=== PATIENT | female | born 2000 ===

== ENCOUNTER 2019-04-12 12:02 | Emergency (ER) | payer OTHER ==
--- NOTE | 2019-04-12 12:30 | UC ---
FLU HPI - HPI Summary HPI Summary: 18 yo female presents with flu-like symptoms. She tells me that for the past week she has had sinus pain/pressure/congestion, sore throat, and dry cough. Last night developed subjective fever and body aches. She has not been taking anything OTC for her symptoms. She does not smoke. Denies rash, SOB, chest pain , abdominal pain, n/v/d, dysuria. - History of Current Complaint Chief Complaint: UCGeneralIllness Stated Complaint: FEVER Time Seen by Provider: 04/12/19 12:30 Hx Obtained From: Patient Hx Last Menstrual Period: 04/12/19 Severity Currently: Mild Severity Initially: Mild Pain Intensity: 1 Pain Scale Used: 0-10 Numeric - Allergy/Home Medications Allergies/Adverse Reactions: Allergies Allergy/AdvReac Type Severity Reaction Status Date / Time No Known Allergies Allergy Verified 04/12/19 12:13 Home Medications: Home Medications Ibuprofen TAB* [Motrin TAB* 600 MG] 600 mg PO Q6H PRN 04/12/19 [History Confirmed 04/12/19] Norethindrone-E.estradiol-Iron [Junel Fe 04/07 1-20 mg-Mcg] 1 tab PO DAILY [History Confirmed 04/12/19] PMH/Surg Hx/FS Hx/Imm Hx - Additional Past Medical History Additional PMH: None - Surgical History Surgical History: Yes Surgery Procedure, Year, and Place: tear duct surgery as a baby - Family History Known Family History: Positive: None - Social History Occupation: Student Lives: Dormitory/Roommates Alcohol Use: Occasionally Substance Use Type: None Smoking Status (MU): Never Smoked Tobacco Review of Systems All Other Systems Reviewed And Are Negative: No Constitutional: Positive: Fever, Other - Body aches Skin: Positive: Negative Eyes: Positive: Negative ENT: Positive: Sore Throat, Nasal Discharge, Sinus Congestion, Sinus Pain/ Tenderness Respiratory: Positive: Cough Cardiovascular: Positive: Negative Gastrointestinal: Positive: Negative Neurovascular: Positive: Negative Neurological: Positive: Negative Psychological: Positive: Negative Physical Exam - Summary Physical Exam Summary: GENERAL: NAD. WDWN. No pain distress. SKIN: No rashes, sores, lesions, or open wounds. HEENT: Head: AT/NC Eyes: EOM intact. Conjunctiva clear without inflammation or discharge. Ears: Hearing grossly normal. TMs intact, no bulging, erythema, or edema. Nose: Nasal mucosa mildly swollen and erythematous without discharge. TTP maxillary and frontal sinus. Positive post nasal drip Throat: Posterior oropharynx without exudates, erythema, or tonsillar enlargement. Uvula midline. NECK: Supple. Nontender. No lymphadenopathy. CHEST: CTAB. No r/r/w. No accessory muscle use. Breathing comfortably and in no distress. CV: RRR. Pulses intact. Cap refill <2seconds NEURO: Alert. PSYCH: Age appropriate behavior. Triage Information Reviewed: Yes Vital Signs: Initial Vital Signs Temp 99.1 F 04/12/19 12:14 Pulse 107 04/12/19 12:14 Resp 14 04/12/19 12:14 BP 123/82 04/12/19 12:14 Pulse Ox 98 04/12/19 12:14 Vital Signs Reviewed: Yes Flu Course/Dx - Course Course Of Treatment: POC influenza invalid and pt did not want to repeat test. Suspect sinusitis - rx for amoxicillin - Differential Dx/Diagnosis Provider Diagnosis: Sinusitis Discharge ED - Sign-Out/Discharge Documenting (check all that apply): Patient Departure All imaging exams completed and their final reports reviewed: No Studies - Discharge Plan Condition: Stable Disposition: HOME Prescriptions: Amoxicillin PO (*) [Amoxicillin 875 MG (*)] 875 mg PO BID #14 tab Patient Education Materials: Sinusitis (ED) Referrals: No Primary Care Phys,NOPCP [Primary Care Provider] - Additional Instructions: If you develop a fever, shortness of breath, chest pain, new or worsening symptoms - please call your PCP or go to the ED immediately. - Billing Disposition and Condition Condition: STABLE Disposition: Home
== END 2019-04-12 13:00 | disposition home or self-care (01) ==
LOC: UCEAST 12:02
DX: J32.9 Chronic sinusitis, unspecified (principal); R50.9 Fever, unspecified; J02.9 Acute pharyngitis, unspecified; R05 Cough
CPT/HCPCS: 99202; G0463